=== PATIENT | male | born 1930 | race Caucasian/White ===

== ENCOUNTER → 2018-11-06 | Outpatient (REF) | payer MEDICARE, BC ==
[~2018-11-06] MED LIST: ATORVASTATIN CA40 MG PO; GLIPIZIDE10 MG PO; LANTUS100 MG/ML SC; LOSARTAN POT25 MG PO; METFORMIN500 MG PO; NEXIUM40 M1 PO; PERCOCET 5/325M1 TAB PO; TOPROL XL100 MG PO
== END | disposition home or self-care (01) ==
LOC: DI 13:25
PROVIDERS: ATTEND Orthopaedic Surgery
DX: M54.5 Low back pain (principal); M51.36 Other intervertebral disc degeneration, lumbar region